=== PATIENT | male | born 1965 ===

== ENCOUNTER 2021-01-02 02:29 | Inpatient (IN) | payer MEDICAID, SELFPAY ==
[2021-01-02 02:28] VITALS: BP 126/88; PULSE 86; RESP 19; TEMP 36.9; O2SAT 96
[2021-01-02 02:32] VITALS: BMI 31.3
--- NOTE | 2021-01-02 04:18 | PC.NURSE ---
Skin assessment revealed no wounds or injuries.
--- NOTE | 2021-01-02 04:22 | PC.NURSE ---
Oxygen saturation=92%.
[2021-01-02 05:40] VITALS: BP 99/58; PULSE 73; RESP 19; TEMP 36.8; O2SAT 95
[2021-01-02] MEDS: folic acid 1 mg Tablet PO (07:54)
[2021-01-02] MEDS: divalproex DR 500 mg Tablet PO ×2 (07:54→21:21)
[2021-01-02] MEDS: thiamine 100 mg Tablet PO (07:55)
[2021-01-02] MEDS: multivitamin therapeutic Tablet 1 TAB PO (07:55)
--- NOTE | 2021-01-02 07:56 | PC.NURSE ---
refused scheduled clonidine, trazodone, lipitor, gabapentin this morning. pt stated he takes these medications in the evening
[2021-01-02] MEDS: nicotine 21 mg Patch 1 PATCH TRANSDERMA (09:09)
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
[2021-01-02 14:00] VITALS: BP 128/87; PULSE 80; RESP 18; TEMP 36.4; O2SAT 91
[2021-01-02 16:53] VITALS: O2SAT 96
[2021-01-02] MEDS: cloNIDine 0.1 mg Tablet PO (21:20)
[2021-01-02 22:00] VITALS: BP 131/83; PULSE 78; RESP 18; TEMP 36.7; O2SAT 97
[2021-01-02] MEDS: gabapentin 100 mg Capsule PO (22:01)
[2021-01-02] MEDS: trazodone 150 mg Tablet PO (22:01)
[2021-01-03 00:50] VITALS: PULSE 78; O2SAT 98
[2021-01-03 06:00] VITALS: BP 125/91; PULSE 87; RESP 18; TEMP 36.4; O2SAT 96
[2021-01-03] MEDS: atorvastatin 40 mg Tablet 20 MG PO (08:02)
[2021-01-03] MEDS: folic acid 1 mg Tablet PO (08:02)
[2021-01-03] MEDS: multivitamin therapeutic Tablet 1 TAB PO (08:02)
[2021-01-03] MEDS: thiamine 100 mg Tablet PO (08:02)
[2021-01-03] MEDS: divalproex DR 500 mg Tablet PO (08:02)
--- NOTE | 2021-01-03 08:03 | PC.NURSE ---
REFUSED SCHEDULED CLONIDINE
[2021-01-03 09:04] VITALS: BP 125/91; PULSE 87; RESP 18; TEMP 36.4; O2SAT 96
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
== END 2021-01-03 14:09 | disposition home or self-care (01) | DRG 897 ==
PROVIDERS: Admitting Provider Psychiatry & Neurology Psychiatry; Visit Provider Psychiatry & Neurology Psychiatry
DX: F10.229 Alcohol dependence with intoxication, unspecified (principal); R45.851 Suicidal ideations; F10.239 Alcohol dependence with withdrawal, unspecified; F32.9 Major depressive disorder, single episode, unspecified; F17.210 Nicotine dependence, cigarettes, uncomplicated; F41.9 Anxiety disorder, unspecified
CPT/HCPCS: 94664